=== PATIENT | female | born 1950 | race Caucasian/White ===

== ENCOUNTER 2017-12-29 10:22 | Emergency (ER) | payer OTHER ==
[2017-12-29] MEDS ORDERED: DIPHENHYDRAMINE 25 MG TAB/CAP ONE (10:52)
[2017-12-29] MEDS ORDERED: FAMOTIDINE 20 MG TAB ONE (10:52)
[2017-12-29] MEDS ORDERED: predniSONE 20 MG TAB ONE (10:52)
[2017-12-29 11:11] LABS: Urine Blood NEGATIVE (NEG); Urine Glucose NEGATIVE (NEG); Urine Protein NEGATIVE (NEG); Urine Specific Gravity 1.025 (1.005-1.030); Urine pH 5.5 (5.0-7.0)
[2017-12-29 11:30] LABS: Urine Bacteria >50 /HPF (<20); Urine RBC <5 /HPF (NONE SEEN)
[2017-12-29 11:31] LABS: Urine Culture Reflex Order NOT NEEDED; Urine Mucus MOD /HPF (NONE SEEN)
--- NOTE | 2017-12-29 12:02 | EDPHYS ---
Physician Documentation [facility] Name: Celina Wilkins Age: 67 yrs Sex: Female : 1950 Arrival Date: 12/29/2017 Time: 10:25 Bed 18 Private MD: Augie Travis E ED Physician Rolf Moon HPI: 12/29 11:55 This 67 yrs old Female presents to ER via Ambulatory with complaints of gs Allergic Reaction. 11:55 The patient presents with rash, that is diffuse. Onset: The symptoms/episode gs began/occurred 2 day(s) ago. Associated signs and symptoms: Pertinent negatives: dysphagia, fever, Syncope. Possible causes: azo , possibly. At home the patient or guardian has treated the symptoms with Benadryl. Severity of symptoms: At their worst the symptoms were moderate in the emergency department the symptoms are unchanged. The patient has experienced similar episodes in the past, a few times. Historical: - Allergies: 10:46 Aspirin; em - PMHx: 10:46 Kidney stones; em - PSHx: 10:46 ; em - Immunization history:: Adult Immunizations up to date. - Social history:: Smoking status: Patient/guardian denies using tobacco. - Ebola Screening: : Patient negative for fever greater than or equal to 101.5 degrees Fahrenheit, and additional compatible Ebola Virus Disease symptoms Patient denies exposure to infectious person Patient denies travel to an Ebola-affected area in the 21 days before illness onset No symptoms or risks identified at this time. ROS: 11:55 Constitutional: Negative for fever. gs 11:55 : Positive for urinary symptoms. 11:55 All other systems are negative. Exam: 11:55 Head/Face: Normocephalic, atraumatic. Eyes: Pupils equal round and reactive to light, gs extra-ocular motions intact. Lids and lashes normal. Conjunctiva and sclera are non-icteric and not injected. Cornea within normal limits. Periorbital areas with no swelling, redness, or edema. ENT: Nares patent. No nasal discharge, no septal abnormalities noted. Tympanic membranes are normal and external auditory canals are clear. Oropharynx with no redness, swelling, or masses, exudates, or evidence of obstruction, uvula midline. Mucous membranes moist. Neck: Trachea midline, no thyromegaly or masses palpated, and no cervical lymphadenopathy. Supple, full range of motion without nuchal rigidity, or vertebral point tenderness. No Meningismus. Chest/axilla: Normal chest wall appearance and motion. Nontender with no deformity. No lesions are appreciated. Cardiovascular: Regular rate and rhythm with a normal S1 and S2. No gallops, murmurs, or rubs. Normal PMI, no JVD. No pulse deficits. Respiratory: Lungs have equal breath sounds bilaterally, clear to auscultation and percussion. No rales, rhonchi or wheezes noted. No increased work of breathing, no retractions or nasal flaring. Abdomen/GI: Soft, non-tender, with normal bowel sounds. No distension or tympany. No guarding or rebound. No evidence of tenderness throughout. Back: No spinal tenderness. No costovertebral tenderness. Full range of motion. MS/ Extremity: Pulses equal, no cyanosis. Neurovascular intact. Full, normal range of motion. Neuro: Awake and alert, GCS 15, oriented to person, place, time, and situation. Cranial nerves II-XII grossly intact. Motor strength 5/5 in all extremities. Sensory grossly intact. Cerebellar exam normal. Normal gait. 11:55 Constitutional: The patient appears alert, awake. 11:55 Skin: rash can be described as erythematous, and is diffusely located. Vital Signs: 10:38 BP 155 / 83; Pulse 80; Resp 18; Temp 98.5(O); Pulse Ox 96% ; Weight 77.11 kg; Height 5 mh5 ft. 0 in. (152.40 cm); 11:07 BP 119 / 76; Pulse 66; Resp 16; Pulse Ox 98% on R/A; Pain 5/10; em 11:34 BP 136 / 72; Pulse 76; Resp 18; Pulse Ox 100% on R/A; em 12:29 BP 149 / 86; Pulse 73; Resp 16; Pulse Ox 96% on R/A; em 10:38 Body Mass Index 33.20 (77.11 kg, 152.40 cm) mh5 MDM: 10:39 Patient medically screened. 11:55 Differential diagnosis: anaphylaxis, urticaria, Vasovagal Reactions uti. Data reviewed: vital signs, nurses notes. Response to treatment: the patient's symptoms have markedly improved after treatment, erythema decreased less itching, and as a result, I will discharge patient. 12/29 11:01 Order name: Urine Dipstick--Ancillary (enter results); Complete Time: 11:55 ag 12/29 11:13 Order name: Urine Microscopic Only; Complete Time: 11:55 ag Administered Medications: 10:50 Drug: predniSONE 40 mg Route: PO; em 12:16 Follow up: Response: No adverse reaction em 10:50 Drug: Pepcid 20 mg Route: PO; em 12:17 Follow up: Response: No adverse reaction em 10:50 Drug: Benadryl 25 mg Route: PO; em 12:17 Follow up: Response: No adverse reaction em Disposition: 12/29/17 12:01 Discharged to Home. Impression: allergic reaction, Cystitis. - Condition is Stable. - Discharge Instructions: Urinary Tract Infection. - Prescriptions for Keflex 500 mg Oral Capsule - take 1 capsule by ORAL route every 12 hours for 7 days; 14 capsule. Benadryl 25 mg Oral Capsule - take 1 capsule by ORAL route every 6 hours As needed; 30 tablet. Prednisone 20 mg Oral Tablet - take 1 tablet by ORAL route once daily for 5 days; 5 tablet. - Medication Reconciliation Form, Thank You Letter, Antibiotic Education, Prescription Opioid Use form. - Follow up: Private Physician; When: 1 - 2 days; Reason: Re-evaluation by your physician. Signatures: Dispatcher [employer] [facility] Sea Layton, MOTORCYCLE TESTER MOTORCYCLE TESTER Rolf Barba MD MD gs Corrections: (The following items were deleted from the chart) 11:14 10:40 URINALYSIS+U.LAB.BRZ ordered. [facility] 12:30 12:01 12/29/2017 12:01 Discharged to Home. Impression: allergic reaction; Cystitis. em Condition is Stable. Forms are Medication Reconciliation Form, Thank You Letter, Antibiotic Education, Prescription Opioid Use. Follow up: Private Physician; When: 1 - 2 days; Reason: Re-evaluation by your physician. gs
--- NOTE | 2017-12-29 12:02 | ER ---
Nurse's Notes [facility] Name: Celina Wilkins Age: 67 yrs Sex: Female : 1950 Arrival Date: 12/29/2017 Time: 10:25 Bed 18 Private MD: Augie Travis E Diagnosis: allergic reaction;Cystitis Presentation: 12/29 10:42 Presenting complaint: Patient states: "I have swelling/itching on both legs that runs em up my legs and also on my right ear lobe, I feel like I have a lump in the back of my throat sometimes, started after I took Azo because I think I have a UTI.". Transition of care: patient was not received from another setting of care. Onset: The symptoms/episode began/occurred 4 day(s) ago. Anaphylaxis evaluation, the patient reports or I have noted the following symptoms which indicate a significant risk of anaphylaxis: lump in the throat which may suggest laryngeal edema urticaria. Onset of symptoms was December 25, 2017. Risk Assessment: Do you want to hurt yourself or someone else? Patient reports no desire to harm self or others. Initial Sepsis Screen: Does the patient meet any 2 criteria? No. Patient's initial sepsis screen is negative. Does the patient have a suspected source of infection? No. Patient's initial sepsis screen is negative. Care prior to arrival: Medication(s) given: Benadryl. 10:42 Method Of Arrival: Ambulatory em 10:56 Acuity: LUDIVINA 4 iw Triage Assessment: 10:46 General: Appears in no apparent distress. uncomfortable, Behavior is cooperative, em anxious. Historical: - Allergies: 10:46 Aspirin; em - PMHx: 10:46 Kidney stones; em - PSHx: 10:46 ; em - Immunization history:: Adult Immunizations up to date. - Social history:: Smoking status: Patient/guardian denies using tobacco. - Ebola Screening: : Patient negative for fever greater than or equal to 101.5 degrees Fahrenheit, and additional compatible Ebola Virus Disease symptoms Patient denies exposure to infectious person Patient denies travel to an Ebola-affected area in the 21 days before illness onset No symptoms or risks identified at this time. Screenin:47 Abuse screen: Denies threats or abuse. Nutritional screening: No deficits noted. em Tuberculosis screening: No symptoms or risk factors identified. Fall Risk None identified. Assessment: 10:40 General: Appears in no apparent distress. uncomfortable, Behavior is cooperative, em anxious. Pain: Complains of pain in right hand, left hand, anterior aspect of right ankle and anterior aspect of left ankle Pain currently is 5 out of 10 on a pain scale. Quality of pain is described as "tight". Neuro: Level of Consciousness is awake, alert, obeys commands, Oriented to person, place, time, situation. Neuro: Moves all extremities. Gait is steady. Cardiovascular: Capillary refill < 3 seconds Patient's skin is warm and dry. Respiratory: Airway is patent Respiratory effort is even, unlabored, Breath sounds are clear bilaterally. Denies shortness of breath labored breathing. GI: Patient currently denies nausea, vomiting. : No signs and/or symptoms were reported regarding the genitourinary system. EENT: Throat is clear is pink. Derm: Skin is intact, Skin is pink, warm \\T\\ dry. Derm: swelling and redness noted to paul. ankles. Musculoskeletal: Range of motion: intact in all extremities. 10:50 Reassessment: Patient appears in no apparent distress at this time. Patient and/or em family updated on plan of care and expected duration. Pain level reassessed. Patient is alert, oriented x 3, equal unlabored respirations, skin warm/dry/pink. ambulated to restroom to give UA specimen. 10:55 Reassessment: Patient appears in no apparent distress at this time. I agree with above iw assessment by Sea Layton LVN. 12:00 Reassessment: Patient appears in no apparent distress at this time. Patient and/or em family updated on plan of care and expected duration. Pain level reassessed. Patient is alert, oriented x 3, equal unlabored respirations, skin warm/dry/pink. 12:20 Reassessment: Patient appears in no apparent distress at this time. Patient and/or em family updated on plan of care and expected duration. Pain level reassessed. Patient is alert, oriented x 3, equal unlabored respirations, skin warm/dry/pink. Patient states feeling better. Vital Signs: 10:38 BP 155 / 83; Pulse 80; Resp 18; Temp 98.5(O); Pulse Ox 96% ; Weight 77.11 kg; Height 5 mh5 ft. 0 in. (152.40 cm); 11:07 BP 119 / 76; Pulse 66; Resp 16; Pulse Ox 98% on R/A; Pain 5/10; em 11:34 BP 136 / 72; Pulse 76; Resp 18; Pulse Ox 100% on R/A; em 12:29 BP 149 / 86; Pulse 73; Resp 16; Pulse Ox 96% on R/A; em 10:38 Body Mass Index 33.20 (77.11 kg, 152.40 cm) [facility] ED Course: 10:25 Patient arrived in ED. mr 10:26 Augie Travis MD is Private Physician. mr 10:30 Rolf Moon MD is Attending Physician. gs 10:35 Sea Layton LVN is Primary Nurse. em 10:40 Patient has correct armband on for positive identification. Bed in low position. Call [facility] light in reach. Side rails up X 1. Adult w/ patient. Pulse ox on. NIBP on. 10:56 Triage completed. iw 11:02 Arm band placed on. em 12:27 No provider procedures requiring assistance completed. Patient did not have IV access em during this emergency room visit. Administered Medications: 10:50 Drug: predniSONE 40 mg Route: PO; em 12:16 Follow up: Response: No adverse reaction em 10:50 Drug: Pepcid 20 mg Route: PO; em 12:17 Follow up: Response: No adverse reaction em 10:50 Drug: Benadryl 25 mg Route: PO; em 12:17 Follow up: Response: No adverse reaction em Outcome: 12:01 Discharge ordered by MD. gs 12:27 Discharged to home ambulatory. em 12:27 Condition: good 12:27 Discharge instructions given to patient, family, Instructed on discharge instructions, follow up and referral plans. medication usage, Demonstrated understanding of instructions, follow-up care, medications, Prescriptions given X 3. 12:30 Patient left the ED. em Signatures: Marj Pimentel mr Sea Layton LVN LVN em Jennifer Paez, RN RN Marj Rasmussen [facility] Rolf Moon MD MD gs Corrections: (The following items were deleted from the chart) 12:00 10:50 Reassessment: Patient appears in no apparent distress at this time. Patient em and/or family updated on plan of care and expected duration. Pain level reassessed. ambulated to restroom to give UA specimen em
== END 2017-12-29 12:30 | disposition home or self-care (01) ==
LOC: ER 10:22
DX: T78.49XA Other allergy, initial encounter (principal); N30.90 Cystitis, unspecified without hematuria; X58.XXXA Exposure to other specified factors, initial encounter; Z88.6 Allergy status to analgesic agent
CPT/HCPCS: 81003; 81015; 99283; J7512

== ENCOUNTER 2020-02-19 13:56 | Observation (INO) | payer MEDICARE ==
[2020-02-19 15:01] LABS: Absolute Lymphocytes (CBC) 2.3 K/uL (0.7-4.9); Basophils % 1.2 % (0-1.3); Hematocrit 39.2 % (36.0-45.0); Lymphocytes % 27.8 % (15.3-44.8); Protime INR 1.04; RBC Red Blood Cell Count 4.42 M/uL (3.86-4.86)
--- NOTE | 2020-02-19 15:25 | RAD REPORT ---
EXAM DESCRIPTION: CT - Chest For Pe Angio - 02/19/2020 3:12 pm CLINICAL HISTORY: Chest pain. shortness of breath COMPARISON: Chest Pa And Lat (2 Views) dated 02/19/2020 TECHNIQUE: CT angiogram of the pulmonary arteries was performed with MIP. All CT scans are performed using dose optimization technique as appropriate and may include automated exposure control or mA/KV adjustment according to patient size. FINDINGS: No evidence of pulmonary thromboembolism. No acute aortic finding demonstrated. Mild cardiomegaly. Lungs demonstrate mild interstitial pulmonary edema. 17 x 17 mm soft tissue mass is seen in the right suprahilar region of the right upper lobe. Trace effusions. Mild adenopathy is present in the mediastinum. Mild degenerative change involves the thoracic spine. 11 mm left adrenal lesion seen. IMPRESSION: No evidence of pulmonary thromboembolism. Mild CHF. 17 mm soft tissue mass has developed the right upper lobe worrisome for neoplasia. Follow-up PET-CT w ould be recommended.
[2020-02-19 15:32] LABS: ALT/SGPT 26 U/L (12-78); AST/SGOT 23 U/L (15-37); Albumin 3.7 g/dL (3.4-5.0); Alkaline Phosphatase 97 U/L (45-117); BUN Blood Urea Nitrogen 15 mg/dL (7-18); Bicarbonate 26 mmol/L (21-32); Bilirubin Direct 0.2 mg/dL (0-0.2); Bilirubin Total 0.9 mg/dL (0.2-1.0); Glucose Level 107 mg/dL (74-106); Magnesium 2.2 mg/dL (1.8-2.4); NT PRO-BNP 650 pg/mL (<125); Potassium 3.8 mmol/L (3.5-5.1); Protein, Total 7.9 g/dL (6.4-8.2); Sodium Level 141 mmol/L (136-145)
[2020-02-19 15:33] LABS: Troponin (Emerg Dept Use Only) 0.84 ng/mL (0.0-0.045)
[2020-02-19] MEDS ORDERED: ALPRAZOLAM 0.25 MG TABLET PO PRN (15:40)
[2020-02-19] MEDS ORDERED: ACETAMINOPHEN 500 MG TAB PO PRN (15:40)
--- NOTE | 2020-02-19 16:06 | EDPHYS ---
Physician Documentation [facility] Name: Celina Wilkins Age: 69 yrs Sex: Female : 1950 Arrival Date: 02/19/2020 Time: 14:00 Bed 14 Private MD: Augie Travis E ED Physician Perez Deluca HPI: 02/18 14:32 This 69 yrs old Female presents to ER via Ambulatory with complaints of jmm Abnormal Lab Results. 14:32 The patient has shortness of breath with light activity. Onset: The symptoms/episode jmm began/occurred gradually, 1 month(s) ago. Duration: The symptoms are continuous. The patient's shortness of breath is aggravated by coughing, exertion. Associated signs and symptoms: Pertinent positives: non-productive cough, Pertinent negatives: chest pain, fever, loss of consciousness. This is a 69 year old female with no chronic medical conditions that presents to the ED with complaints of shortness of breath beginning approx 1 month ago with slight cough. Patient also complains of bilateral leg swelling which is intermittent. Denies fever, denies hemoptysis, denies chest pain. . Historical: - Allergies: 14:30 Aspirin; aa5 14:30 Azo; aa5 - Home Meds: 14:30 None [Active]; aa5 - PMHx: 14:30 Kidney stones; aa5 - PSHx: 14:30 ; aa5 - Immunization history:: Adult Immunizations unknown. - Social history:: Smoking status: Patient denies any tobacco usage or history of. ROS: 14:32 Constitutional: Negative for fever, chills, and weight loss, Cardiovascular: Negative jmm for chest pain, palpitations, and edema. 14:32 Cardiovascular: 14:32 Respiratory: Positive for cough, shortness of breath. 14:32 All other systems are negative. Exam: 15:32 Constitutional: This is a well developed, well nourished patient who is awake, alert, jmm and in no acute distress. Head/Face: atraumatic. Eyes: EOMI, no conjunctival erythema appreciated ENT: Moist Mucus Membranes Neck: Trachea midline, Supple Chest/axilla: Normal chest wall appearance and motion. Cardiovascular: Regular rate and rhythm. No edema appreciated Respiratory: Normal respirations, no respiratory distress appreciated Abdomen/GI: Non distended, soft Back: Normal ROM Skin: General appearance color normal MS/ Extremity: Moves all extremities, no obvious deformities appreciated, no edema noted to the lower extremities Neuro: Awake and alert, normal gait Psych: Behavior is normal, Mood is normal, Patient is cooperative and pleasant 16:16 ECG was reviewed by the Attending Physician. [facility] Vital Signs: 14:25 BP 170 / 94; Pulse 86; Resp 20 S; Temp 98.2(O); Pulse Ox 95% on R/A; Weight 79.38 kg aa5 (R); Height 5 ft. 1 in. (154.94 cm); Pain 0/10; 15:47 BP 135 / 91; Pulse 81; Resp 18; Pulse Ox 96% on R/A; sv 16:35 BP 165 / 79; Pulse 80; Resp 20; Pulse Ox 96% on R/A; sv 17:04 BP 153 / 95; Pulse 84; Resp 21; Pulse Ox 95% on R/A; sv 18:00 BP 159 / 89; Pulse 79; Resp 21; Pulse Ox 97% ; sv 19:15 BP 153 / 79; Pulse 88; Resp 21; Temp 97.9(O); Pulse Ox 96% on R/A; jb4 14:25 Body Mass Index 33.07 (79.38 kg, 154.94 cm) aa5 MDM: 14:54 Patient medically screened. [facility] 16:00 Data reviewed: vital signs, nurses notes. Counseling: I had a detailed discussion with [facility] the patient and/or guardian regarding: the historical points, exam findings, and any diagnostic results supporting the discharge/admit diagnosis, lab results, radiology results, the need for further work-up and treatment in the hospital. ED course: Patient's troponin elevated. Will admit for further evaluation. I also discussed the mass to the right lung along with the need for further evaluation. . 02/18 14:33 Order name: Creatinine, Serum [facility] 02/18 14:36 Order name: Basic Metabolic Panel; Complete Time: 15:35 [facility] 02/18 14:36 Order name: CBC with Diff; Complete Time: 15:06 [facility] 02/18 14:36 Order name: LFT's; Complete Time: 15:35 [facility] 02/18 14:36 Order name: Magnesium; Complete Time: 15:35 [facility] 02/18 14:36 Order name: NT PRO-BNP; Complete Time: 15:35 [facility] 02/18 14:36 Order name: PT-INR; Complete Time: 15:06 [facility] 02/18 14:36 Order name: Troponin (emerg Dept Use Only); Complete Time: 15:35 [facility] 02/18 15:40 Order name: COVID-19 [facility] 02/18 15:43 Order name: Basic Metabolic Panel [facility] 02/18 15:43 Order name: Basic Metabolic Panel [facility] 02/18 15:43 Order name: CBC with Automated Diff [facility] 02/18 15:43 Order name: CBC with Automated Diff [facility] 02/18 15:43 Order name: Lipid Profile [facility] 02/18 14:32 Order name: Saline Lock; Complete Time: 14:40 [facility] 02/18 14:32 Order name: CT Chest For PE Angio; Complete Time: 15:27 [facility] 02/18 14:36 Order name: EKG; Complete Time: 14:36 [facility] 02/18 14:36 Order name: Cardiac monitoring; Complete Time: 14:40 [facility] 02/18 14:36 Order name: EKG - Nurse/Tech; Complete Time: 14:54 [facility] 02/18 14:36 Order name: Labs collected and sent; Complete Time: 14:40 [facility] 02/18 14:36 Order name: O2 Per Protocol; Complete Time: 14:40 [facility] 02/18 14:36 Order name: O2 Sat Monitoring; Complete Time: 14:40 [facility] 02/18 15:43 Order name: CONS Physician Consult [facility] 02/18 15:43 Order name: Heart Healthy [facility] 02/18 15:43 Order name: Echo with Doppler [facility] 02/18 15:43 Order name: Lipid Profile [facility] 02/18 15:44 Order name: Troponin I [facility] 02/18 15:44 Order name: Troponin I [facility] 02/18 15:44 Order name: Troponin I [facility] EC:16 Rate is 77 beats/min. Rhythm is regular, pac. QRS [place] is Normal. [place] interval is jmm normal. QRS interval is normal. QT interval is prolonged at 442 msec. No Q waves. T waves are Flattened in leads III, aVL. No ST changes noted. Reviewed by me. Administered Medications: No medications were administered Disposition: 02/19/20 16:06 Hospitalization ordered by Cesar Joya for Observation. Preliminary diagnosis are Elevated Troponin, Unspecified systolic (congestive) heart failure, Unspecified diastolic (congestive) heart failure, Lung Mass. - Bed requested for Telemetry/MedSurg (observation). - Status is Observation. jb4 - Condition is Stable. - Problem is new. - Symptoms are unchanged. Addendum: 02/21/2020 08:50 Co-signature as Attending Physician, Perez Deluca MD I agree with the assessment and k dr plan of care. Signatures: Dispatcher [employer] EDRajani Vegas RN RN Perez Busby MD MD [facility] Richard Hall PA PA jm Mihaela Aguilar, RN RN aa5 Shorty Stokes, GLENN RN jb4 Corrections: (The following items were deleted from the chart) 02/18 18:37 16:06 Hospitalization Ordered by Cesar Joya MD for Observation. Preliminary dw diagnosis is Elevated Troponin; Unspecified systolic (congestive) heart failure; Unspecified diastolic (congestive) heart failure; Lung Mass. Bed requested for Telemetry/MedSurg (observation). Status is Observation. Condition is Stable. Problem is new. Symptoms are unchanged. [facility] 20:18 18:37 02/19/2020 16:06 Hospitalization Ordered by Cesar Joya MD for Observation. jb4 Preliminary diagnosis is Elevated Troponin; Unspecified systolic (congestive) heart failure; Unspecified diastolic (congestive) heart failure; Lung Mass. Bed requested for Telemetry/MedSurg (observation). Status is Observation. Condition is Stable. Problem is new. Symptoms are unchanged. dw
--- NOTE | 2020-02-19 16:06 | ER ---
Nurse's Notes [facility] Name: Celina Wilkins Age: 69 yrs Sex: Female : 1950 Arrival Date: 02/19/2020 Time: 14:00 Bed 14 Private MD: Augie Travis E Diagnosis: Elevated Troponin;Unspecified systolic (congestive) heart failure;Unspecified diastolic (congestive) heart failure;Lung Mass Presentation: 02/18 14:25 Chief complaint: Patient states: "Dr. Russell sent me here because my d-dimmer was aa5 critical". Pt reports SOB x 1 month ago, pt also reports cough. 14:25 Coronavirus screen: cough unrelated to allergies, shortness of breath, Client presents aa5 with at least one sign or symptom that may indicate coronavirus-19. Standard/surgical mask placed on the client. Provider contacted for isolation considerations. Ebola Screen: Patient negative for fever greater than or equal to 101.5 degrees Fahrenheit, and additional compatible Ebola Virus Disease symptoms. Initial Sepsis Screen: Does the patient meet any 2 criteria? No. Patient's initial sepsis screen is negative. Does the patient have a suspected source of infection? No. Patient's initial sepsis screen is negative. Risk Assessment: Do you want to hurt yourself or someone else? Patient reports no desire to harm self or others. Onset of symptoms was February 19, 2020. 14:25 Acuity: LUDIVINA 3 aa5 14:25 Method Of Arrival: Ambulatory aa5 Historical: - Allergies: 14:30 Aspirin; aa5 14:30 Azo; aa5 - Home Meds: 14:30 None [Active]; aa5 - PMHx: 14:30 Kidney stones; aa5 - PSHx: 14:30 ; aa5 - Immunization history:: Adult Immunizations unknown. - Social history:: Smoking status: Patient denies any tobacco usage or history of. Screenin:40 Abuse screen: Denies threats or abuse. Denies injuries from another. Nutritional sv screening: No deficits noted. Tuberculosis screening: No symptoms or risk factors identified. Fall Risk None identified. Assessment: 14:40 General: Appears in no apparent distress. comfortable, well developed, Behavior is sv calm, cooperative, appropriate for age. Pain: Denies pain. Neuro: Level of Consciousness is awake, alert, obeys commands, Oriented to person, place, time, situation, Moves all extremities. Full function Speech is normal. Respiratory: Airway is patent Respiratory effort is even, unlabored, Respiratory pattern is regular, symmetrical. Respiratory: Reports shortness of breath on exertion. Derm: Skin is pink, warm \\T\\ dry. 15:18 Reassessment: Patient appears in no apparent distress at this time. No changes from sv previously documented assessment. Patient and/or family updated on plan of care and expected duration. Pain level reassessed. Patient is alert, oriented x 3, equal unlabored respirations, skin warm/dry/pink. 16:35 Reassessment: Patient appears in no apparent distress at this time. No changes from sv previously documented assessment. Patient and/or family updated on plan of care and expected duration. Pain level reassessed. Patient is alert, oriented x 3, equal unlabored respirations, skin warm/dry/pink. 17:56 Reassessment: Patient appears in no apparent distress at this time. No changes from sv previously documented assessment. Patient and/or family updated on plan of care and expected duration. Pain level reassessed. Patient is alert, oriented x 3, equal unlabored respirations, skin warm/dry/pink. 19:10 Reassessment: Patient and/or family updated on plan of care and expected duration. Pain jb4 level reassessed. Patient is alert, oriented x 3, equal unlabored respirations, skin warm/dry/pink. PT is sitting on the side of the bed using her cellphones. Updated on plan of care and time estimate for going upstairs to her assigned room. No s/s of distress noted, respirations are even and unlabored. 19:55 Reassessment: Patient appears in no apparent distress at this time. Patient and/or jb4 family updated on plan of care and expected duration. Pain level reassessed. Patient is alert, oriented x 3, equal unlabored respirations, skin warm/dry/pink. Report given to receiving nurse. Vital Signs: 14:25 BP 170 / 94; Pulse 86; Resp 20 S; Temp 98.2(O); Pulse Ox 95% on R/A; Weight 79.38 kg aa5 (R); Height 5 ft. 1 in. (154.94 cm); Pain 0/10; 15:47 BP 135 / 91; Pulse 81; Resp 18; Pulse Ox 96% on R/A; sv 16:35 BP 165 / 79; Pulse 80; Resp 20; Pulse Ox 96% on R/A; sv 17:04 BP 153 / 95; Pulse 84; Resp 21; Pulse Ox 95% on R/A; sv 18:00 BP 159 / 89; Pulse 79; Resp 21; Pulse Ox 97% ; sv 19:15 BP 153 / 79; Pulse 88; Resp 21; Temp 97.9(O); Pulse Ox 96% on R/A; jb4 14:25 Body Mass Index 33.07 (79.38 kg, 154.94 cm) aa5 ED Course: 14:00 Patient arrived in ED. mr 14:00 Augie Travis MD is Private Physician. mr 14:28 Arm band placed on. aa5 14:30 Triage completed. aa5 14:31 Richard Hall PA is PHCP. [facility] 14:31 Perez Deluca MD is Attending Physician. [facility] 14:40 Cele Francisco, GLENN is Primary Nurse. sv 14:40 Patient has correct armband on for positive identification. Placed in gown. Bed in low sv position. Call light in reach. Side rails up X2. therapeutic dietitian on. Pulse ox on. NIBP on. 14:40 Inserted saline lock: 20 gauge in right antecubital area, using aseptic technique. sv Blood collected. Flushed right antecubital with 5 ml normal saline. 14:[address] Scan. sv 14:54 Creatinine, Serum Sent. sv 15:12 CT Chest For PE Angio In Process Unspecified. EDMS 15:18 Awaiting radiology results. Awaiting re-evaluation by ER provider. sv 15:47 Awaiting disposition, Awaiting re-evaluation by ER provider. sv 16:05 Cesar Joya MD is Hospitalizing Provider. jmm 16:35 Awaiting bed assignment. sv 17:41 Awaiting bed assignment. sv 17:56 No provider procedures requiring assistance completed. Patient admitted, IV remains in sv place. intact. 19:10 Report given to Mark ELIZABETH. sv 19:17 Primary Nurse role handed off by Cele Francisco, GLENN sv Administered Medications: No medications were administered Outcome: 16:06 Decision to Hospitalize by Provider. jmm 19:55 Admitted to Med/surg accompanied by nurse, via wheelchair, room 223, with chart. jb4 19:55 Condition: stable 19:55 Discharge instructions given to patient, Instructed on the need for admit, Demonstrated understanding of instructions. 20:18 Patient left the ED. jb4 Signatures: Dispatcher [employer] EDCele Figueroa, Richard Mishra RN, PA PA jmm Rivera, Mary mr Mihaela Aguilar, RN RN aa5 Shorty Stokes RN RN jb4
[2020-02-19] MEDS ORDERED: MORPHINE 2 MG/ML SYR IV PRN (16:15)
[2020-02-19] MEDS: METOPROLOL TAR 25 MG TAB PO SCH (21:14)
[2020-02-19] MEDS: ENOXAPARIN 80 MG/0.8 ML SQ SCH (21:14)
[2020-02-19 23:56] VITALS: BMI 33.6
--- NOTE | 2020-02-20 00:31 | P.HP ---
Certification for Inpatient Patient admitted to: Observation With expected LOS: <2 Midnights Patient will require the following post-hospital care: None Practitioner: I am a practitioner with admitting privileges, knowledge of patient current condition, hospital course, and medical plan of care. Services: Services provided to patient in accordance with Admission requirements found in Title 42 Section 412.3 of the Code of Federal Regulations Patient History Date of Service: 02/19/20 Reason for admission: Chest pain rule out acute coronary syndrome History of Present Illness: Patient is a 69-year-old female who came to the hospital with chest discomfort. Pain was mainly in the sternal region. She was short of breath as well. She came to the emergency room for further evaluation. In the emergency rooms her imaging study revealed she had a lung mass. She also had elevated troponin. Decision was made to admit the patient to the hospital for further evaluation. Patient states she is feeling better. Chest pain has resolved. Her breathing is also improved. She will be admitted for observation and get Cardiology and Pulmonary consultation. Allergies aspirin Allergy (Verified 02/19/20 20:57) Itching/Hives/Rash Home Medications: Acetaminophen [Tylenol -Tablet] 650 mg PO Q6HP PRN 02/19/20 - Past Medical/Surgical History Has patient received pneumonia vaccine in the past: Yes Diabetic: No -: Seasonal allergies -: Umbilical hernia -: Borderline hypertension -: C-sections x2 Psychosocial/ Personal History: The patient is . 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 - Family History Mother Medical History: Heart disease - Social History Smoking Status: Former smoker Alcohol use: No CD- Drugs: No Caffeine use: Yes Place of Residence: Home Review of Systems 10-point ROS is otherwise unremarkable Physical Examination - Vital Signs Temperature: 98.1 F Blood Pressure: 143/75 Pulse: 76 Respirations: 16 Pulse Ox (%): 92 - Physical Exam General: Alert, In no apparent distress, Oriented x3 HEENT: Atraumatic, PERRLA, Mucous membr. moist/pink, EOMI, Sclerae nonicteric Neck: Supple, 2+ carotid pulse no bruit, No LAD, Without JVD or thyroid abnormality Respiratory: Clear to auscultation bilaterally, Normal air movement Cardiovascular: Regular rate/rhythm, Normal S1 S2, No murmurs Gastrointestinal: Normal bowel sounds, Soft and benign, Non-distended, No tenderness Musculoskeletal: No clubbing, No swelling, No tenderness Integumentary: No rashes Neurological: Normal gait, Normal speech, Normal strength at 5/5 x4 extr, Normal tone, Sensation intact, Cranial nerves 3-12 intact, Normal affect Lymphatics: No axilla or inguinal lymphadenopathy - Studies Laboratory Data (last 24 hrs) 02/19/20 14:40: PT 12.3, INR 1.04 02/19/20 14:40: WBC 8.3, Hgb 13.1, Hct 39.2, Plt Count 250 02/19/20 14:40: Sodium 141, Potassium 3.8, BUN 15, Creatinine 0.60, Glucose 107 H, Magnesium 2.2, Total Bilirubin 0.9, AST 23, ALT 26, Alkaline Phosphatase 97 Assessment & Plan - Problems (Diagnosis) (1) Chest pain, rule out acute myocardial infarction Current Visit: Yes Status: Acute (2) Lung mass Current Visit: Yes Status: Acute (3) Elevated troponin Current Visit: Yes Status: Acute - Plan 1. Serial troponins and EKG 2. Cardiology consultation 3. Echocardiogram and further evaluation per Cardiology 4. Anti-platelet therapy, anti coagulation, beta-allison, statin, and O2 as needed 5. IV morphine for pain 6. Nitro p.r.n. 7. Pulmonary consultation 8. GI and DVT prophylaxis Discharge Plan: Home Plan to discharge in: 24 Hours - Advance Directives Does patient have a Living Will: No Does patient have a Durable POA for Healthcare: No - Code Status/Comfort Care Code Status Assessed: Yes Code Status: Full Code Critical Care: No Time Spent Managing PTS Care (In Minutes): 40
[2020-02-20 05:32] LABS: Absolute Lymphocytes (CBC) 2.9 K/uL (0.7-4.9); Hematocrit 35.1 % (36.0-45.0); MPV 10.1 fL (7.6-11.3); RBC Red Blood Cell Count 3.97 M/uL (3.86-4.86)
[2020-02-20] MEDS: METOPROLOL TAR 25 MG TAB PO SCH (05:32)
--- NOTE | 2020-02-20 05:38 | CON ---
Date of Consultation: 02/19/2020 Reason For Consultation: Chest pain. History Of Present Illness: Ms. Wilkins is a 69-year-old woman without really any significant past medical history. She does not take any medication. She is allergic to aspirin only. Came in with c hest pain, elevated troponin, and was found to have a 17 mm right upper lobe mass by CT scan and x-ra y. Her troponin was 0.84. Her BNP was 650. She denied any nausea, vomiting, diaphoresis, PND, orth opnea, pedal edema, palpitations, or syncope. Past Medical History: Negative. Allergies: ASPIRIN. Home Medications: None. Review of Systems: Negative. Social History: Positive for tobacco. Family History: Negative. Physical Examination: Vital Signs: Stable. Afebrile. HEENT: Negative. Neck: Supple. No bruit. Chest: Clear. Cardiac: Regular rhythm and rate. No murmurs, gallops, or rubs. Abdomen: Benign. Extremities: No clubbing, cyanosis, or edema. Diagnostic Data: As stated earlier, her EKG was normal. Echocardiogram and carotid were normal in 2 017. Impression And Plan: 1.Non-ST elevation myocardial infarction. 2.New lung mass. The patient I think would benefit from having a heart catheterization done to defi ne her coronary anatomy, especially that she is going to have a pulmonary workup done. There is an e chocardiogram pending, but I am not so sure that will be done until Saturday. I will make recommendati on for a heart catheterization to be done Saturday morning unless the patient feels more comfortable do ing that as an outpatient. For now, I think Lovenox, aspirin, beta blockers should be the mainstay o f therapy. Statin should be considered as well. I will continue to follow her along. STEVEN/ANKUSH Voice ID: [id number] Report ID: [id number]
--- NOTE | 2020-02-20 05:47 | EKG ---
Test Date: 2020-02-19 Test Time: 14:50:57 Meteorological Technician: MARICEL MEASUREMENT RESULTS: Intervals: Rate: 77 IL: 178 QRSD: 112 QT: 442 QTc: 500 [place]: P: 59 IL: 178 QRS: 53 T: 46 INTERPRETIVE STATEMENTS: Sinus rhythm with premature atrial complexes ST abnormality, possible digitalis effect Prolonged QT Abnormal ECG Compared to ECG 02/19/2020 12:58:07 Atrial premature complex(es) now present ST (T wave) deviation now present Electronically Signed On 02-20-20 05:45:16 CDT by José Luis Thorne
[2020-02-20 06:35] LABS: BUN Blood Urea Nitrogen 17 mg/dL (7-18); Bicarbonate 26 mmol/L (21-32); Glucose Level 102 mg/dL (74-106); HDL Cholesterol 54 mg/dL (40-60); LDL Cholesterol, Calculated 106 (<130); Potassium 3.7 mmol/L (3.5-5.1); Sodium Level 141 mmol/L (136-145)
[2020-02-20 06:36] LABS: Troponin I 0.82 ng/mL (0.0-0.045)
[2020-02-20] MEDS: ENOXAPARIN 80 MG/0.8 ML SQ SCH (08:29)
[2020-02-20] MEDS: ASPIRIN EC 81 MG TAB PO SCH ×2 (08:30→08:32)
[2020-02-20 08:39] VITALS: O2SAT 92
[2020-02-20] MEDS ORDERED: ALBUTEROL INHALER 60 PUFF/8 GM IH PRN (10:16)
--- NOTE | 2020-02-20 10:23 | P.DS ---
Admission Date: 02/20/20 Discharge Date: 02/20/20 Primary Care Provider: Dr. Travis Disposition: ROUTINE DISCHARGE Discharge Condition: GOOD Reason for Admission: Chest pain rule out acute coronary syndrome Consultations: Cardiology-Dr. Thorne Pulmonary-Dr. Eduardo Procedures: Ct scan: FINDINGS: No evidence of pulmonary thromboembolism. No acute aortic finding demonstrated. Mild cardiomegaly. Lungs demonstrate mild interstitial pulmonary edema. 17 x 17 mm soft tissue mass is seen in the right suprahilar region of the right upper lobe. Trace effusions. Mild adenopathy is present in the mediastinum. Mild degenerative change involves the thoracic spine. 11 mm left adrenal lesion seen. IMPRESSION: No evidence of pulmonary thromboembolism. Mild CHF. 17 mm soft tissue mass has developed the right upper lobe worrisome for neoplasia. Follow-up PET-CT would be recommended. Medical problem list: Shortness of breath likely underlying asthma complicated with elevated troponin suspect NSTEMI Hypertension CT finding of 17 mm soft tissue mass to the right upper lobe Brief History of Present Illness: 69 yo CF presented to the ER with shortness of breath. Patient found to have elevated troponin. CT scan showed suspected CHF with 17 mm right upper lobe mass. Patient admitted for further evaluation and treatment. Hospital Course: Patient presented with shortness of breath. Patient found to have elevated troponin likely underlying NSTEMI. Patient was admitted for further evaluation and treatment. Patient seen and evaluated by Cardiology. Troponin trend has improved. Patient without significant chest pain, shortness of breath or diaphoresis. Cardiology felt patient stable at this time for discharge. Cardiology recommends outpatient heart catheterization to be done early next week, likely Saturday. At discharge patient may continue with aspirin 81 mg daily which she has taken in the past. Patient will also continue with metoprolol 25 mg 1 pill twice daily for hypertension. Hold blood pressure medication if systolic less than 120 or heart rate less than 50. Recommend to monitor blood pressure daily. Cardiology will continue cardiac workup as recommended above. Patient was seen and evaluated by pulmonology for her shortness of breath. Pulmonology suspects asthma. CT scan also revealed a 17 mm soft tissue mass to the right upper lobe. Patient will have cardiac evaluation initially then pulmonology will continue further workup of lung mass. This will likely and could repeat CT scan or CT PET scan. At discharge for her asthma, patient will continue with Advair 1 puff twice daily and Pro air 2 puffs 3 times a day as needed for shortness of breath. Patient will follow up with pulmonology as directed. Vital Signs/Physical Exam: Temp Pulse Resp BP Pulse Ox 97.4 F 68 15 134/67 92 02/20/20 08:00 02/20/20 08:00 02/20/20 08:00 02/20/20 08:00 02/20/20 08:00 General: Alert, In no apparent distress, Oriented x3, Cooperative HEENT: Atraumatic Neck: Supple Respiratory: Clear to auscultation bilaterally, Normal air movement Cardiovascular: Normal pulses, Regular rate/rhythm Gastrointestinal: Normal bowel sounds, Soft and benign, Non-distended, No masses, No rebound, No guarding Integumentary: No tenderness/swelling, No erythema, No warmth, No cyanosis Neurological: Normal speech, Normal strength at 5/5 x4 extr, Normal tone, Normal affect Laboratory Data at Discharge: WBC 7.7 K/uL (4.3-10.9) 02/20/20 05:04 Hgb 11.8 g/dL (12.0-15.0) L 02/20/20 05:04 Hct 35.1 % (36.0-45.0) L 02/20/20 05:04 Plt Count 229 K/uL (152-406) 02/20/20 05:04 PT 12.3 SECONDS (9.5-12.5) 02/19/20 14:40 INR 1.04 02/19/20 14:40 Sodium 141 mmol/L (136-145) 02/20/20 05:04 Potassium 3.7 mmol/L (3.5-5.1) 02/20/20 05:04 BUN 17 mg/dL (7-18) 02/20/20 05:04 Creatinine 0.58 mg/dL (0.55-1.3) 02/20/20 05:04 Glucose 102 mg/dL (74-106) 02/20/20 05:04 Magnesium 2.2 mg/dL (1.8-2.4) 02/19/20 14:40 Total Bilirubin 0.9 mg/dL (0.2-1.0) 02/19/20 14:40 AST 23 U/L (15-37) 02/19/20 14:40 ALT 26 U/L (12-78) 02/19/20 14:40 Alkaline Phosphatase 97 U/L (45-117) 02/19/20 14:40 Troponin I 0.82 ng/mL (0.0-0.045) H* 02/20/20 05:04 Troponin I Cancelled 02/20/20 05:04 Triglycerides Cancelled 02/20/20 06:00 Cholesterol Cancelled 02/20/20 06:00 HDL Cholesterol Cancelled 02/20/20 06:00 Cholesterol/HDL Ratio Cancelled 02/20/20 06:00 Home Medications: Albuterol Inhaler [Ventolin Inhaler*] 2 puff IH TID PRN #1 hfa.aer.ad 02/20/20 Aspirin [Aspirin EC 81 MG] 81 mg PO DAILY #90 tablet. 02/20/20 Fluticasone/Salmeterol [Advair 250-50 Diskus] 1 each IH BID #1 blst.w.dev 02/20/20 Metoprolol Tartrate [Lopressor*] 25 mg PO BID 6AM 6PM #60 tab 02/20/20 New Medications: Fluticasone/Salmeterol [Advair 250-50 Diskus] 1 each IH BID #1 blst.w.dev Aspirin [Aspirin EC 81 MG] 81 mg PO DAILY #90 tablet. Metoprolol Tartrate [Lopressor*] 25 mg PO BID 6AM 6PM #60 tab Albuterol Inhaler [Ventolin Inhaler*] 2 puff IH TID PRN #1 hfa.aer.ad PRN Reason: Shortness Of Breath Patient Discharge Instructions: 1. Recommend follow up with PCP in 1 week to follow up this hospitalization. 2. Patient presented with shortness of breath. Patient found to have elevated troponin likely underlying NSTEMI. Patient was admitted for further evaluation and treatment. Patient seen and evaluated by Cardiology. Troponin trend has improved. Patient without significant chest pain, shortness of breath or diaphoresis. Cardiology felt patient stable at this time for discharge. Cardiology recommends outpatient heart catheterization to be done early next week, likely Saturday. At discharge patient may continue with aspirin 81 mg daily which she has taken in the past. Patient will also continue with metoprolol 25 mg 1 pill twice daily for hypertension. Hold blood pressure medication if systolic less than 120 or heart rate less than 50. Recommend to monitor blood pressure daily. Cardiology will continue cardiac workup as recommended above. 3. Patient was seen and evaluated by pulmonology for her shortness of breath. Pulmonology suspects asthma. CT scan also revealed a 17 mm soft tissue mass to the right upper lobe. Patient will have cardiac evaluation initially then pulmonology will continue further workup of lung mass. This will likely and could repeat CT scan or CT PET scan. At discharge for her asthma, patient will continue with Advair 1 puff twice daily and Pro air 2 puffs 3 times a day as needed for shortness of breath. Patient will follow up with pulmonology as directed. Diet: AHA Activity: Ad jordi Time spent managing pt's care (in minutes): 55
--- NOTE | 2020-02-20 10:57 | P.CNS ---
Date of Consult: 02/20/20 Reason for Consult: Abnormal CT scan Primary Care Provider: Dr. Travis Chief Complaint: Chest pain rule out acute coronary syndrome History of Present Illness: Patient is 69 years of age has been complaining of dyspnea on exertion for the past month some chest discomfort no prior history of coronary artery disease the troponins were elevated no history of diabetes or hypertension patient does not smoke the history of asthma she denies any tightness or wheezing is feeling better now Allergies aspirin Allergy (Verified 02/19/20 20:57) Itching/Hives/Rash Home Medications: Albuterol Inhaler [Ventolin Inhaler*] 2 puff IH TID PRN #1 hfa.aer.ad 02/20/20 Aspirin [Aspirin EC 81 MG] 81 mg PO DAILY #90 tablet.dr 02/20/20 Fluticasone/Salmeterol [Advair 250-50 Diskus] 1 each IH BID #1 blst.w.dev 02/20/20 Metoprolol Tartrate [Lopressor*] 25 mg PO BID 6AM 6PM #60 tab 02/20/20 - Past Medical/Surgical History Diabetic: No -: Seasonal allergies -: Umbilical hernia -: Borderline hypertension -: C-sections x2 Psychosocial/ Personal History: The patient is . 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 - Family History Mother Medical History: Heart disease - Social History Alcohol use: No CD- Drugs: No Caffeine use: Yes Place of Residence: Home Review of Systems 10-point ROS is otherwise unremarkable Physical Examination Temp Pulse Resp BP Pulse Ox 97.4 F 68 15 134/67 92 02/20/20 08:00 02/20/20 08:00 02/20/20 08:00 02/20/20 08:00 02/20/20 08:00 General: Alert, Oriented x3 Neck: Supple Respiratory: Clear to auscultation bilaterally Cardiovascular: No edema, Regular rate/rhythm, Normal S1 S2 Gastrointestinal: Normal bowel sounds, Soft and benign Laboratory Data (last 24 hrs) 02/20/20 06:00: Triglycerides Cancelled, Cholesterol Cancelled, HDL Cholesterol Cancelled, Cholesterol/HDL Ratio Cancelled 02/20/20 05:04: Sodium 141, Potassium 3.7, BUN 17, Creatinine 0.58, Glucose 102, Troponin I 0.82 H*, Triglycerides 140, Cholesterol 188, HDL Cholesterol 54, Cholesterol/HDL Ratio 3.48 02/20/20 05:04: WBC 7.7, Hgb 11.8 L, Hct 35.1 L, Plt Count 229 02/20/20 05:04: Troponin I Cancelled 02/19/20 22:09: Troponin I 0.88 H* 02/19/20 14:40: PT 12.3, INR 1.04 02/19/20 14:40: WBC 8.3, Hgb 13.1, Hct 39.2, Plt Count 250 02/19/20 14:40: Sodium 141, Potassium 3.8, BUN 15, Creatinine 0.60, Glucose 107 H, Magnesium 2.2, Total Bilirubin 0.9, AST 23, ALT 26, Alkaline Phosphatase 97 - Problems (1) Abnormal CT scan Current Visit: Yes Status: Acute Plan: Patient is 69 years of age admitted with dyspnea on exertion some chest d iscomfort elevated troponins incidentally found and a past the in the right upper lobe she has never smoked no prior history of lung cancer very low risk for malignancy poorly has non ST elevation myocardial infarction scheduled to have a cardiac catheterization done as far as the opacities concerned plan to follow up in with a CT scan in about a month he is low risk for lung cancer may have underlying obstructive airways disease history of asthma recommend discharge) on Advair follow with me in 2 weeks
[2020-02-20 14:34] VITALS: BP 134/83; TEMP 97.3
[2020-02-20] MEDS ORDERED: DULERA 100/5 (MOMETASONE/FORMOTEROL) INHALER IH SCH (21:00)
== END 2020-02-20 13:00 | disposition home or self-care (01) ==
LOC: ER 13:56 → ERHOLD 15:40 → 2ND 19:43 → INTOOBSV 02-20 07:46 → OBSVTOIN 02-20 07:46
PROVIDERS: ADMIT Hospitalist; ATTEND Family Medicine
DX: I21.4 Non-ST elevation (NSTEMI) myocardial infarction (principal); R91.8 Other nonspecific abnormal finding of lung field; R06.09 Other forms of dyspnea; I11.0 Hypertensive heart disease with heart failure; I50.40 Unspecified combined systolic (congestive) and diastolic (congestive) heart failure; R05 Cough; R06.02 Shortness of breath; Z20.828 Contact with and (suspected) exposure to other viral communicable diseases; I49.1 Atrial premature depolarization; R94.31 Abnormal electrocardiogram [ECG] [EKG]
CPT/HCPCS: 93005; 85025 ×2; 80048 ×2; 36415 ×2; 83735; 85610; 80061; 82565; 80076; 84484 ×3; 83880; 71275; 99285; U0003; Q9967; G0378 ×3; J7606

== ENCOUNTER 2020-03-03 07:43 | Day surgery (SDC) | payer MEDICARE ==
[2020-03-03] MEDS ORDERED: NA CHLORIDE 0.9% 500 ML ONE (08:17)
[2020-03-03] MEDS ORDERED: HEPA 1000U/500MLS 1,000 UNIT/500 ML BAG IV ONE (08:34)
[2020-03-03] MEDS ORDERED: MIDAZOLAM HCL 2 MG/2 ML INJ ONE (08:54)
[2020-03-03] MEDS ORDERED: FENTANYL CITR 100 MCG/2 ML ONE (08:55)
[2020-03-03] MEDS ORDERED: ATROPINE SULF 1 MG/10 ML SYR IV ONE (08:55)
[2020-03-03] MEDS ORDERED: NA CHLORIDE 0.9% 0 ML ONE (08:55)
--- NOTE | 2020-03-03 09:46 | OP ---
Date of Procedure: 03/03/2020 Surgeon: José Luis Thorne MD Sewing Machine Maintenance Mechanic: Lesly Marks. The patient will remain in the hospital for 2 hours after Angio-Seal of her right groin and she will go home today and I will see her in the office in the next 2 weeks. Procedure: Left heart catheterization and selective coronary arteriogram. Indication: Positive troponin. Description Of Procedure: The patient was prepped and draped in the routine sterile fashion in the c ath lab. She was brought in as an outpatient today 03/03/2020. A 6-Icelandic sheath was introduced in the right groin using the Seldinger technique after 10 cc of xylocaine. Janet catheter in left and right were used to cannulate the left main and right main. She had normal coronaries. She tolerate d the procedure well. Complications: There were no complications. Estimated Blood Loss: 5 mL. Anesthesia: Total conscious sedation was 30 minutes. Postoperative Diagnoses: Normal heart catheterization and positive troponin. Plan: Medical therapy. STEVEN/ANKUSH Voice ID: [id number] Report ID: [id number]
[2020-03-03 12:14] VITALS: BP 122/84; TEMP 97.3; O2SAT 95
== END 2020-03-03 12:08 | disposition home or self-care (01) ==
LOC: CCL 07:43
DX: I21.4 Non-ST elevation (NSTEMI) myocardial infarction (principal); R79.89 Other specified abnormal findings of blood chemistry; R91.8 Other nonspecific abnormal finding of lung field; Z88.6 Allergy status to analgesic agent
CPT/HCPCS: 93454; C1893; C1760; J2250; J3010; J7040; J1644; J0583

== ENCOUNTER 2021-06-13 01:16 | Emergency (ER) | payer OTHER ==
--- OUTSIDE RECORDS SUMMARY | 2021-06-13 01:19 | XMS REPORT | Continuity of Care Document ---
:1950 Author Organization [facility] t Address [address] [place] [address] Care Team Providers Name Role Phone Pcp, Does Not Have A Primary Care Physician Doctor Unassigned, Name Attending Clinician Unavailable Teja SZYMANSKI S Attending Clinician Roosevelt HUANG L Attending Clinician Payers Payer Name Policy Type Policy Number Effective Date Expiration Date S ource Problems Condition Condition Condition Status Onset Resolution Last Treating Co mments Source Name Details Category Date Date Treatment Clinician Date Lumbar Lumbar Disease Active 2020-06 [facility] radiculopa radiculopa 06-24 it y [place] [facility] Allergies, Adverse Reactions, Alerts Allergy Allergy Status Severity Reaction(s) Onset Inactive Treating Comm ents Source Name Type Date Date Clinician Aspirin Propensi Active Unknown - 2020-06 Univ ers ty to See comments 0-27 ity of adverse 00:00: [place] reaction 00 Medical s Branch Social History Social Habit Start Date Stop Date Quantity Comments Source Exposure to Not sure University SARS-CoV-2 [facility] (event) Branch Alcohol intake 2021-04-27 2021-04-27 Lifetime University of 00:00:00 00:00:00 non-drinker [facility] (finding) Branch Tobacco use and 2021-04-19 2021-04-19 Never used Universit y of exposure 00:00:00 00:00:[address] [facility] Sex Assigned At [birth year] Universit y of 00:00:00 00:00:[address] [facility] Smoking Status Start Date Stop Date Source Never smoker [facility] Medications Ordered Filled Start Stop Current Ordering Indication Dosage Frequency Signature Comments Components Source Medication Medication Date Date Medication? Clinician (SIG) Name Name methylPREDN 2020-06 Yes [id number] 84mg Take 21 Univers ISolone 0-27 9107 tablets by ity of (MEDROL, 00:00: mouth [place] ASHLEGIH,) 4 mg 00 SEE-INSTRU Med ical tablets CTIONS. [place] follow package directions methylPREDN 2020-06 Yes [id number] 84mg Take 21 Univers ISolone 0-27 9107 tablets by ity of (MEDROL, 00:00: mouth [place] ASHLEIGH,) 4 mg 00 SEE-INSTRU Med ical tablets CTIONS. [place] follow package directions traMADoL 50 2020-06 Yes Univer s mg tablet 0-12 ity of 00:00: [place] 00 [facility] traMADoL 50 2020-06 Yes Univer s mg tablet 0-12 ity of 00:00: [address] Vital Signs Vital Name Observation Time Observation Value Comments Source Body height 2021-04-27 16:04:00 154.9 cm [facility] Body weight 2021-04-27 16:04:00 81.647 kg [facility] BMI 2021-04-27 16:04:00 34.01 kg/m2 [facility] Procedures Procedure Date / Time Performed Performing Clinician [facility] e EXTERNAL PROVIDER 2021-05-04 06:01:00 Doctor [place], No Univ [facility] RECORDS Name [facility] Encounters Start End Encounter Admission Attending Care Care Encounter Source Date/Time Date/Time Type Type Clinicians Facility Department ID 2021-05-04 2021-05-04 Orders Doctor ROCHA [id number] Univers 00:00:00 00:00:00 Only Unassigned, AYDIN [id number] ity of [place] [facility] [id number] [place] as [phone] [address] 2021-04-27 2021-04-27 Office Dennis Lezama [facility] [id number] Univers 10:56:10 11:51:49 Visit Willie Albert [facility] [id number] ity of [place] [id number] [place] as KAE?BLEA [phone] Ut liliana OLSON [address] [place] [address] MEDICAL OFFICE BUILDING Results This patient has no known results.
--- NOTE | 2021-06-13 02:54 | ER ---
Nurse's Notes [facility] Name: Celina Wilkins Age: 70 yrs Sex: Female : 1950 Arrival Date: 06/13/2021 Time: :19 Bed 19 Private MD: Diagnosis: Unspecified hemorrhoids-Bleeding Presentation: 06/13 01:33 Chief complaint: Patient states: Reports rectal bleeding that began about 2200, reports lp1 soaking through pads; hx of hemorrhoids, denies any rectal pain. Coronavirus screen: At this time, the client does not indicate any symptoms associated with coronavirus-19. Ebola Screen: No symptoms or risks identified at this time. Initial Sepsis Screen: Does the patient meet any 2 criteria? No. Patient's initial sepsis screen is negative. Does the patient have a suspected source of infection? No. Patient's initial sepsis screen is negative. Risk Assessment: Do you want to hurt yourself or someone else? Patient reports no desire to harm self or others. Onset of symptoms was June 12, 2021 at 22:00. 01:33 Method Of Arrival: Ambulatory lp1 01:33 Acuity: LUDIVINA 3 lp1 Historical: - Allergies: 01:35 Aspirin; lp1 01:35 Azo; lp1 - Home Meds: 01:35 Lisinopril Oral [Active]; Albuterol Inhl [Active]; lp1 - PMHx: 01:35 Kidney stones; lp1 - PSHx: 01:35 None; lp1 - Immunization history:: Adult Immunizations up to date. - Social history:: Smoking status: Patient denies any tobacco usage or history of. Screenin:35 Abuse screen: Denies threats or abuse. Denies injuries from another. Nutritional lp1 screening: No deficits noted. Tuberculosis screening: No symptoms or risk factors identified. 03:13 Fall Risk None identified. sm5 Assessment: 02:00 General: Appears in no apparent distress. Behavior is calm, cooperative. Pain: Denies sm5 pain. Neuro: No deficits noted. Level of Consciousness is awake, alert, Oriented to person, place, time, situation. Cardiovascular: No deficits noted. Capillary refill < 3 seconds Patient's skin is warm and dry. Respiratory: No deficits noted. Airway is patent Trachea midline Respiratory effort is even, unlabored. GI: Reports rectal bleeding, hemorrhoids. : No deficits noted. 03:00 Reassessment: Patient states symptoms have improved. 5 Vital Signs: 01:33 BP 148 / 97; Pulse 108; Resp 20; Temp 98(O); Pulse Ox 96% on R/A; Weight 81.65 kg (R); lp1 Height 5 ft. 0 in. (152.40 cm); Pain 0/10; 02:00 BP 145 / 88; Pulse 81; Resp 20; Pulse Ox 96% on R/A; sm5 03:12 BP 142 / 87; Pulse 87; Resp 19; Pulse Ox 96% on R/A; sm5 01:33 Body Mass Index 35.15 (81.65 kg, 152.40 cm) 1 ED Course: 01:19 Patient arrived in ED. bp1 01:24 Perez Deluca MD is Attending Physician. kdr 01:26 Thao Tomlinson, RN is Primary Nurse. 5 01:35 Triage completed. lp1 01:35 Arm band placed on. lp1 03:12 Served as a tape coater during rectal exam. Patient did not have IV access during this 5 emergency room visit. 03:13 Patient has correct armband on for positive identification. Placed in gown. Bed in low 5 position. Call light in reach. Side rails up X2. Administered Medications: No medications were administered Outcome: 02:53 Discharge ordered by . kdr 03:13 Discharged to home ambulatory, with significant other. 5 03:13 Condition: good 03:13 Discharge instructions given to patient, significant other, Instructed on discharge instructions, follow up and referral plans. Demonstrated understanding of instructions, follow-up care. 03:13 Patient left the ED. [facility] Signatures: Perez Deluca MD MD kdr Devi Johnson, RN RN lp1 Saray Pastrana bp1 Thao Tomlinson, GLENN RN 5
--- NOTE | 2021-06-13 02:54 | EDPHYS ---
Physician Documentation [facility] Name: Celina Wilkins Age: 70 yrs Sex: Female : 1950 Arrival Date: 06/13/2021 Time: 01:19 Bed 19 Private MD: ED Physician Perez Deluca HPI: 06/13 02:57 This 70 yrs old Female presents to ER via Ambulatory with complaints of Rectal kdr Bleeding, Hemorrhoids. 02:57 The patient presents to the emergency department with bleeding from the rectum/anus, kdr that is moderate, pain in the rectal area, Patient has had a painful swollen hemorrhoid for the last 4 days. Tonight it began to bleed around 10 PM. The bleeding has been profuse and persistent. Visit was not stopping she presented to the ED. Onset: The symptoms/episode began/occurred suddenly, just prior to arrival. Context: the patient has a known history of hemorrhoids. Modifying factors: The symptoms are alleviated by nothing, The symptoms are aggravated by movement, sitting position. Associate signs and symptoms: The patient has no apparent associated signs or symptoms. The patient has not experienced similar symptoms in the past. The patient has not recently seen a physician. She has had hemorrhoids previously but they usually do not result in bleeding to this extent. Historical: - Allergies: 01:35 Aspirin; lp1 01:35 Azo; lp1 - Home Meds: 01:35 Lisinopril Oral [Active]; Albuterol Inhl [Active]; lp1 - PMHx: 01:35 Kidney stones; lp1 - PSHx: 01:35 None; lp1 - Immunization history:: Adult Immunizations up to date. - Social history:: Smoking status: Patient denies any tobacco usage or history of. ROS: 02:57 Constitutional: Negative for fever, chills, and weight loss, Eyes: Negative for injury, kdr pain, redness, and discharge, ENT: Negative for injury, pain, and discharge, Neck: Negative for injury, pain, and swelling, Cardiovascular: Negative for chest pain, palpitations, and edema, Respiratory: Negative for shortness of breath, cough, wheezing, and pleuritic chest pain, Back: Negative for injury and pain, : Negative for injury, bleeding, discharge, and swelling, MS/Extremity: Negative for injury and deformity, Skin: Negative for injury, rash, and discoloration, Neuro: Negative for headache, weakness, numbness, tingling, and seizure activity. Psych: Negative for depression, anxiety, suicide ideation, homicidal ideation, and hallucinations, Allergy/Immunology: Negative for hives, rash, and allergies, Endocrine: Negative for neck swelling, polydipsia, polyuria, polyphagia, and marked weight changes, Hematologic/Lymphatic: Negative for swollen nodes, abnormal bleeding, and unusual bruising. 02:57 Abdomen/GI: Positive for rectal bleeding. Exam: 02:57 Constitutional: This is a well developed, well nourished patient who is awake, alert, kdr and in no acute distress. Head/Face: Normocephalic, atraumatic. Eyes: Pupils equal round and reactive to light, extra-ocular motions intact. Lids and lashes normal. Conjunctiva and sclera are non-icteric and not injected. Cornea within normal limits. Periorbital areas with no swelling, redness, or edema. Neck: Trachea midline, no thyromegaly or masses palpated, and no cervical lymphadenopathy. Supple, full range of motion without nuchal rigidity, or vertebral point tenderness. No Meningismus. Chest/axilla: Normal chest wall appearance and motion. Nontender with no deformity. No lesions are appreciated. Cardiovascular: Regular rate and rhythm with a normal S1 and S2. No gallops, murmurs, or rubs. Normal PMI, no JVD. No pulse deficits. Respiratory: Lungs have equal breath sounds bilaterally, clear to auscultation and percussion. No rales, rhonchi or wheezes noted. No increased work of breathing, no retractions or nasal flaring. Back: No spinal tenderness. No costovertebral tenderness. Full range of motion. Skin: Warm, dry with normal turgor. Normal color with no rashes, no lesions, and no evidence of cellulitis. MS/ Extremity: Pulses equal, no cyanosis. Neurovascular intact. Full, normal range of motion. Neuro: Awake and alert, GCS 15, oriented to person, place, time, and situation. Cranial nerves II-XII grossly intact. Motor strength 5/5 in all extremities. Sensory grossly intact. Cerebellar exam normal. Normal gait. Psych: Awake, alert, with orientation to person, place and time. Behavior, mood, and affect are within normal limits. 02:57 Abdomen/GI: Inspection: obese Bowel sounds: active, Palpation: soft, nontender, Rectal exam: rectal tone normal, hemorrhoid(s), external, with associated bleeding, with thrombosis, There is minimal obvious bleeding at the time of initial exam. There was a blood clot which was removed without any further bleeding. A 4 x 4 was folded over several times and then inserted around and the residual hemorrhoid tissue. That was left in place for period of 30 minutes or more and rechecked. Patient was having minimal bleeding at that time.. Vital Signs: 01:33 BP 148 / 97; Pulse 108; Resp 20; Temp 98(O); Pulse Ox 96% on R/A; Weight 81.65 kg (R); lp1 Height 5 ft. 0 in. (152.40 cm); Pain 0/10; 02:00 BP 145 / 88; Pulse 81; Resp 20; Pulse Ox 96% on R/A; sm5 03:12 BP 142 / 87; Pulse 87; Resp 19; Pulse Ox 96% on R/A; sm5 01:33 Body Mass Index 35.15 (81.65 kg, 152.40 cm) lp1 MDM: 02:53 Patient medically screened. kdr 02:57 Data reviewed: vital signs, nurses notes. Counseling: I had a detailed discussion with kdr the patient and/or guardian regarding: the historical points, exam findings, and any diagnostic results supporting the discharge/admit diagnosis, the need for outpatient follow up. Administered Medications: No medications were administered Disposition Summary: 06/13/21 02:53 Discharge Ordered Location: Home kdr Problem: new kdr Symptoms: have improved kdr Condition: Stable kdr Diagnosis - Unspecified hemorrhoids - Bleeding kdr Followup: kdr - With: Private Physician - When: 2 - 3 days - Reason: If symptoms return, Further diagnostic work-up, Recheck today's complaints, Continuance of care, Re-evaluation by your physician Discharge Instructions: - Discharge Summary Sheet kdr - High-Fiber Diet kdr - Hemorrhoids, [id number] kdr Forms: - Medication Reconciliation Form kdr - Thank You Letter kdr - Work release form 5 Signatures: Perez Deluca MD MD kdr Devi Johnson RN RN lp1
[2021-06-13 03:24] VITALS: TEMP 98; O2SAT 96
[2021-06-13 03:26] VITALS: BP 142/87
== END 2021-06-13 03:13 | disposition home or self-care (01) ==
LOC: ER 01:16
DX: K64.9 Unspecified hemorrhoids (principal); Z88.6 Allergy status to analgesic agent
CPT/HCPCS: 99283

== ENCOUNTER 2024-09-20 05:44 | Emergency (ER) | payer OTHER ==
[2024-09-20] MEDS ORDERED: Calcium Chloride 10% INJ SYR IV ONE (05:45)
[2024-09-20] MEDS ORDERED: MAGNESIUM SULF 1GM/2ML VIAL IV ONE (05:45)
[2024-09-20] MEDS ORDERED: NA CHLORIDE 0.9% 1,000 ML IV ONE (05:45)
[2024-09-20] MEDS ORDERED: AMIODARONE HCL 150 MG/3 ML INJ IV ONE (05:45)
[2024-09-20] MEDS ORDERED: ATROPINE SULF 1 MG/10 ML SYR IV ONE (05:45)
[2024-09-20] MEDS ORDERED: EPINEPHrine 1 MG/10 ML SYR IV ONE (05:45)
[2024-09-20] MEDS ORDERED: NOREPINEPHRINE BITARTRATE/D5W 4 MG/250 ML BAG IV ONE (06:30)
[2024-09-20 06:34] LABS: Absolute Eosinophils 0.2 K/uL (0-0.5); Absolute Lymphocytes (CBC) 5.1 K/uL (0.7-4.9); Absolute Monocytes 0.4 K/uL (0.1-1.3); Absolute Neutrophil 1.9 K/uL (1.8-8.0); Basophils % 0.5 % (0-1.3); Eosinophils % 3.1 % (0-4.4); Hematocrit 26.1 % (36.0-45.0); Lymphocytes % 66.7 % (15.3-44.8); MCH 29.6 pg (27.0-35.0); MCHC 30.8 g/dL (32.0-36.0); MPV 10.8 fL (7.6-11.3); Monocytes % 5.1 % (3.3-12.3); Neutrophils % 24.6 % (41.7-73.7); Nucleated RBC Absolute Count 0.2 (0-0); Nucleated Red Blood Cells % 2.1 % (0-0); Platelets 164 thou/uL (152-406); RBC Red Blood Cell Count 2.72 M/uL (3.86-4.86); Red Cell Distribution Width 14.6 % (12.1-15.2)
[2024-09-20 06:35] LABS: PT Prothrombin Time 12.4 SECONDS (10-13.0); Protime INR 1.09
[2024-09-20 06:53] LABS: ALT/SGPT 160 U/L (13-56); AST/SGOT 169 U/L (15-37); Albumin 2.5 g/dL (3.4-5.0); Alkaline Phosphatase 95 U/L (45-117); BUN Blood Urea Nitrogen 19 mg/dL (7-18); Bicarbonate 23 mEq/L (21-32); Bilirubin Total 0.3 mg/dL (0.2-1.0); Globulin 2.6 g/dL (2.3-3.5); Glomerular Filtration Rate 51 ml/min (=/>90); Magnesium 5.7 mg/dL (1.6-2.4); NT PRO-BNP 1395 pg/mL (<125); Protein, Total 5.1 g/dL (6.4-8.2); Sodium Level 145 mEq/L (136-145); Troponin High Sensitivity 185.9 pg/mL (<58.9)
[2024-09-20 06:54] LABS: Bilirubin Direct < 0.2 mg/dL (0-0.2); Bilirubin Indirect, Calculated 0.1 mg/dL (0.2-0.8); Glucose Level 473 mg/dL (74-106)
--- NOTE | 2024-09-20 07:04 | EDPHYS ---
Physician Documentation [facility] Name: Celina Wilkins Age: 73 yrs Sex: Female : 1950 Arrival Date: 09/20/2024 Time: 05:44 Bed 3 Private MD: ED Physician Kash Membreno HPI: 09/20 06:32 This 73 yrs old Female presents to ER via Unassigned with complaints of dary respiratory arrest , cpr. 06:32 Preceding the arrest, the patient was dyspneic. The arrest occurred at home. dary Pre-hospital course: EMS care prior to arrival: initiation of ACLS, peripheral IV, intubation ACLS details: see report. The patient has not experienced similar symptoms in the past. - Family history:: not pertinent. ROS: 06:33 Unable to obtain ROS due to patient is on ventilator, cpr in progress, dary Exam: 06:33 Constitutional: The patient appears cpr dary 06:33 Cardiovascular: Rate: actual rate is 0 bpm, Rhythm: asystole, Pulses: not palpable, Heart sounds: none, Edema: 2+ edema to level of left midcalf and right midcalf, JVD: is noted bilaterally, to the angle of the jaw, 06:33 Respiratory: good bs , bagged, 06:33 Musculoskeletal/extremity: DVT Exam: no pain, no tenderness, negative Homans' sign noted on exam, no appreciated bluish discoloration, swelling, that is moderate, of the right leg and left leg, Vital Signs: 07:13 Weight 91 kg; dd2 Hume Coma Score: 05:59 Eye Response: none(1). Modifying Factors: Intubated. Motor Response: none(1). Verbal bm8 Response: none(1). Total: 3. Procedures: 06:35 Central Line: the site was prepped with in sterile fashion, a triple lumen catheter was dary inserted, in the right femoral vein, in 1 attempts. placement was verified, by blood return, the site was dressed with using sterile technique, the patient tolerated the procedure, well. MDM: 06:20 Medical Screening Exam initiated dary 06:35 Differential Diagnosis sepsis. Data reviewed: vital signs, nurses notes, lab test dary result(s), EKG, radiologic studies, plain films. Consideration of Admission/Observation Escalation of care including admission/observation considered. I considered the following discharge prescriptions or medication management in the emergency department Medications were administered in the Emergency Department. See MAR. Independent interpretation of the following test(s) in the Emergency Department EKG: See my EKG interpretation above. Historians other than the Patient: EMS: ems well informed. 09/20 06:24 Order name: Basic Metabolic Panel; Complete Time: 06:55 [facility] 09/20 06:24 Order name: CBC with Diff [facility] 09/20 06:24 Order name: LFT's; Complete Time: 06:55 [facility] 09/20 06:24 Order name: Magnesium; Complete Time: 06:55 [facility] 09/20 06:24 Order name: NT PRO-BNP; Complete Time: 06:55 [facility] 09/20 06:24 Order name: PT-INR; Complete Time: 06:55 [facility] 09/20 06:24 Order name: Troponin HS; Complete Time: 06:55 [facility] 09/20 06:24 Order name: Lactate w/ 2H reflex if indic. [facility] 09/20 06:42 Order name: Manual Differential EDWI 09/20 07:10 Order name: Ghost Lactate-NO COLLECT Timer EDMS 09/20 06:24 Order name: Cardiac monitoring; Complete Time: 08:23 [facility] 09/20 06:24 Order name: IV Saline Lock; Complete Time: 08:24 [facility] 09/20 06:24 Order name: Labs collected and sent; Complete Time: 08:24 [facility] 09/20 06:24 Order name: O2 Per Protocol; Complete Time: 08:24 [facility] 09/20 06:24 Order name: O2 Sat Monitoring; Complete Time: 08:24 [facility] 09/20 06:24 Order name: Central Line Kit; Complete Time: 08:23 [facility] 09/20 06:25 Order name: Celestin; Complete Time: 08:23 [facility] Administered Medications: 06:32 Drug: Norepinephrine IV 0.1 mcg/kg/min IV at calculated rate See Administration dd2 Instructions; (Standard concentration 4 mg / 250 mL D5W); Recommended max rate 3 mcg/kg/min; Titrate 0.05 mcg/kg/min as often as every 5 minutes to achieve goal (see titration policy); Goal parameter MAP greater than 65 mmHg. Route: IV; Rate: calculated rate; Site: right femoral; 07:01 Follow up: Response: No adverse reaction; IV Status: Order to discontinue infusion cg 06:32 Drug: NS 0.9% IV (30 ml/kg) 30 ml/kg IV at bolus once; Sepsis Protocol; to be given as dd2 a bolus over 90 minutes Route: IV; Rate: bolus; Site: right femoral; 07:01 Follow up: Response: No adverse reaction; IV Status: Order to discontinue infusion cg 08:23 Not Given (Patient ): piperacillin-tazobactam3.375 grams IVPB once over 60 mins; cg (mix in NS 100 mL) Point of Care Testing: Blood Glucose: 05:59 Blood Glucose: 295 mg/dL; bm8 Ranges: Critical Glucose Levels:Adult <50 mg/dl or >400 mg/dl <40 mg/dl or >180 mg/dl Disposition Summary: 09/20/24 07:04 Patient Notes: Location: Home dary Pronouncing Physician: Kash Membreno cha Time of : 07:01 09/20/2024 dary Diagnosis - Acute respiratory failure dary - Hypotension, unspecified dary - Cardiac arrhythmia, unspecified dary - Cardiac arrest due to other underlying condition dary Signatures: Dispatcher [employer] EDKash Tsai MD MD cha DAVIS, DIANA, RN RN dd2 Gisell Choudhary RN cg Corrections: (The following items were deleted from the chart) 06:25 06:25 BASIC METABOLIC PANEL+C.LAB.BRZ ordered. EDMS EDMS 06:25 06:25 CBC+H.LAB.BRZ ordered. EDMS EDMS 06:25 06:25 HEPATIC FUNCTION+C.LAB.BRZ ordered. EDMS EDMS 06:25 06:25 MAGNESIUM+C.LAB.BRZ ordered. EDMS EDMS 06:25 06:25 PROBNP+C.LAB.BRZ ordered. EDMS EDMS 06:25 06:25 PROTIME (+INR)+COAG.LAB.BRZ ordered. EDMS EDMS 06:25 06:25 Troponin High Sensitivity+C.LAB.BRZ ordered. EDMS EDMS 06:25 06:25 BLOOD CULTURE*+BA.LAB.BRZ ordered. EDMS EDMS 06:25 06:25 LACTATE+C.LAB.BRZ ordered. EDMS EDMS 06:25 06:25 Chest Single View+RAD.RAD.BRZ ordered. EDMS EDMS 06:25 06:25 Head Brain Wo Cont+CT.RAD.BRZ ordered. EDMS EDMS : 06:25 Chest Abdomen Pelvis Wo Con+CT.RAD.BRZ ordered. EDMS EDMS 08 06:24 EKG - Nurse/Tech ordered. dary story
[2024-09-20 08:54] LABS: Band Neutrophils 2 % (0-1); Differential Total Cells Count 100; Segmented Neutrophils 22 % (40-80)
[2024-09-20 08:55] LABS: Atypical Lymphocytes 4 %; Blood Morphology Comment NOT SEEN (NOT SEEN); Eosinophils 1 % (0-3); Lymphocytes 63 % (15-42); Monocytes 7 % (0-10); Myelocytes 1 % (0-0); Nucleated Red Blood Cells 3 /100WBC; Platelet Estimate ADEQ
--- NOTE | 2024-09-20 10:28 | ER ---
Nurse's Notes [facility] Name: Celina Wilkins Age: 73 yrs Sex: Female : 1950 Arrival Date: 09/20/2024 Time: 05:44 Bed 3 Private MD: Diagnosis: Acute respiratory failure;Hypotension, unspecified;Cardiac arrhythmia, unspecified;Cardiac arrest due to other underlying condition Presentation: 09/20 05:50 Method Of Arrival: EMS: [facility] bm8 05:50 Care prior to arrival: Oral intubation, CPR via thumper performed by EMS and is still bm8 in progress Medication(s) given: 2 EPI Compressions began prior to arrival. 05:50 Acuity: LUDIVINA 1 bm8 06:00 Chief complaint: EMS states: Called out for unresponsive pt at home. We started CPR 2 bm8 rounds of epi, IO to right tibia. 07:45 Risk Assessment: Do you want to hurt yourself or someone else?. lg3 - Family history:: not pertinent. Screenin:59 Abuse screen: Denies threats or abuse. Nutritional screening: No deficits noted. bm8 Tuberculosis screening: No symptoms or risk factors identified. Assessment: 05:50 CPR assessment: unresponsive, pupils fixed \T\ dilated, no respiratory effort, intubated, bm8 Ambu ventilation, cyanotic, pale, pulses present w/ compressions. Cardiac rhythm is asystole. General: Behavior is unresponsive. Neuro: Level of Consciousness is unresponsive. EENT: No signs and/or symptoms were reported regarding the EENT system. Cardiovascular: Capillary refill is > 3 seconds in bilateral fingers toes skin cold and mottled. Rhythm is asystole. Respiratory: Ventilator assessment: ET Tube: 7.0 23 cm at lip. Breath sounds with crackles bilaterally. GI: Abdomen is round distended, obese. : No signs and/or symptoms were reported regarding the genitourinary system. Derm: Skin is intact, Skin is dry, Skin is mottled, pale, Skin temperature is cold. Musculoskeletal: No signs and/or symptoms reported regarding the musculoskeletal system. 07:26 General: 0550- Pt arrived in ER, Javan in place compressing, et tube with bag bm8 ventilation, right tibia IO 0551- Pulse check, no pulse, asystole, epi given 0555- 1 amp bicarb, 1 amp calcium given IO 0556- 1 amp Epi given 0557- Pulse check, V-fib, shock delivered at 150 J, CPR continued 0559- BGL 295, 18 g left IJ started 0600- Pulse Check, V- Fib, shock delivered \T\200 J, CPR continued 0600- Right Femoral triple lumen central started by Dr. Membreno 0601- Amiodarone 300 mg, 1 amp Epi, 1 amp Bicarb delivered in central line 0602- Magnesium 2 g delivered in central line 0603- Pulse check, no pulse, asystole, CPR continued 0605- 1 amp epi in central line 0607- Pulse check, no pulse, asystole, CPR continued 0609- Pulse check, no pulse, asystole, CPR continued, 1 amp Epi given in central line 0611- Pulse Check, Sinus Lan in low 50's 0614- 1 amp Atropine delivered in central line 0615- 1 amp Epi given delivered in central line 0617- 1 amp Calcium, 1 amp Bicarb, 1 L NS Bolus delivered in central line 0618- Sinus Lan high 40's 0620- 16 Fr Celestin cath started, no urine output 0626- Pulse Check, no pulse, asystole, CPR started 0627- 1 amp epi given delivered in central line 0629- Pulse check, faint pulse in femoral, low Lan low 20's 0632- Norepinephrine started at 30 mcg/min delivered in central line, heart rate increased to low 50's 0631- 14 Fr NG tube attempted in left nares, unsuccessful 0632- 14 Fr NG tube attempted in right nares, unsuccessful 0648- Heart rate decreased to low 30's, 1 amp atropine given delivered in central line 0654- Pulse check, no pulse, asystole, CPR started, 1 amp epi given delivered in central line 0656- Pulse Check, no pulse, asystole, CPR continued. 0701- Decision made to cease life saving measure, TIME OF 0701. . 07:58 General: Life gift called spoke with Dennise Schmidt reference # [id number]. 09:21 Reassessment: Pt's son Angel at bedside, Body will be released to [facility] aa5 home. . Vital Signs: 07:13 Weight 91 kg; dd2 Garcia Coma Score: 05:59 Eye Response: none(1). Modifying Factors: Intubated. Motor Response: none(1). Verbal bm8 Response: none(1). Total: 3. ED Course: 05:50 Patient has correct armband on for positive identification. bm8 06:00 Assisted provider with central line placement. Set up central line tray. Triple lumen bm8 line placed in right femoral. Line placed by Kash Membreno MD Placement verified by blood return, Dressed with Tape, Tegaderm, Blood was collected. Patient tolerated well. Before procedure, did Practitioner(s) obtain informed consent? No. Patient \T\ family education about procedure, CLABSI prevention and S/S of infection? No. Time-out/Briefing performed prior to start of procedure? No. Was handwashing/sanitizing done immediately prior to procedure? Yes. Was patient positioned to in a way to prevent air embolism? Yes. Was procedure site sterilized? Yes, with chlorhexidine. Was the site allowed to dry? Yes. Was local anesthetic and/or sedation utilized? N/A. During the procedure, did the Practitioner(s) maintain a sterile field? Yes. Were unused ports clamped during insertion? Yes. Was a 2nd qualified MD obtained after 3 unsuccessful insertion attempts? N/A. Was blood aspirated from each lumen? Yes. After the procedure, did the Practitioner(s) clean the site and apply a sterile dressing? Yes. 06:04 Patient arrived in ED. lg3 06:19 Kash Membreno MD is Attending Physician. dary 06:20 Celestin cath inserted, using sterile technique, 16 Fr., by ED staff, balloon inflated, to bm8 gravity drainage, returned no return. Patient tolerated well. 06:52 Tam Albert, GLENN is Primary Nurse. bm8 07:03 Kash Membreno MD is Pronouncing Provider. dary 07:21 Triage completed. bm8 Administered Medications: 06:32 Drug: Norepinephrine IV 0.1 mcg/kg/min IV at calculated rate See Administration dd2 Instructions; (Standard concentration 4 mg / 250 mL D5W); Recommended max rate 3 mcg/kg/min; Titrate 0.05 mcg/kg/min as often as every 5 minutes to achieve goal (see titration policy); Goal parameter MAP greater than 65 mmHg. Route: IV; Rate: calculated rate; Site: right femoral; 07:01 Follow up: Response: No adverse reaction; IV Status: Order to discontinue infusion cg 06:32 Drug: NS 0.9% IV (30 ml/kg) 30 ml/kg IV at bolus once; Sepsis Protocol; to be given as dd2 a bolus over 90 minutes Route: IV; Rate: bolus; Site: right femoral; 07:01 Follow up: Response: No adverse reaction; IV Status: Order to discontinue infusion cg 08:23 Not Given (Patient ): piperacillin-tazobactam3.375 grams IVPB once over 60 mins; cg (mix in NS 100 mL) Point of Care Testing: Blood Glucose: 05:59 Blood Glucose: 295 mg/dL; bm8 Ranges: Outcome: 07:01 Outcome Patient bm8 07:01 Patient : Time of 07:01 Pronounced by Kash Membreno MD ME notified 07:01 Condition: 10:00 Patient : Body to home, aa5 10:05 Patient left the ED. aa5 Signatures: Kash Membreno MD MD cha Pinkerton, Shawna sp Calderon, Audri, RN RN aa5 Gisell Choudhary, RN RN Juliet Khalil, RN RN lg3 Tam Albert, RN RN bm8 LILI REYES, GLENN RN dd2 Corrections: (The following items were deleted from the chart) 10:54 10:28 Patient left the ED. byron sykes
== END 2024-09-20 10:28 | disposition expired ==
LOC: ER 05:44
DX: J96.00 Acute respiratory failure, unspecified whether with hypoxia or hypercapnia (principal); I46.8 Cardiac arrest due to other underlying condition; I49.9 Cardiac arrhythmia, unspecified; I95.9 Hypotension, unspecified
CPT/HCPCS: 36415; 80048; 80076; 83605; 83735; 83880; 84484; 85025; 85610; 92950; J0171; J0282; J0461; J3475; J7030